=== PATIENT | male | born 1955 | race Caucasian/White ===

== ENCOUNTER 2025-02-05 14:21 | Outpatient (CLI) | payer MEDICARE | END 2025-02-05 14:22 | disposition home or self-care (01) | LOC: CSHCT 14:21 | PROVIDERS: ATTEND Orthopaedic Surgery | DX: M47.22 Other spondylosis with radiculopathy, cervical region (principal); M48.02 Spinal stenosis, cervical region; R93.7 Abnormal findings on diagnostic imaging of other parts of musculoskeletal system; M79.89 Other specified soft tissue disorders | CPT/HCPCS: 72125; 72141 ==